=== PATIENT | male | born 1990 | race Two or more races ===

== ENCOUNTER 2019-10-08 17:50 | Emergency (ER) | payer OTHER ==
[~2019-10-08] VITALS: Ht 167.6 cm; Wt 45.4 kg
[~2019-10-08 17:50] MED LIST: METFORMIN HCL500 MG PO
[2019-10-08] MEDS ORDERED: LANTUS SOL100 UNIT/1 (18:42)
== END 2019-10-08 23:08 | disposition home or self-care (01) ==
LOC: ER 17:50
DX: R19.7 Diarrhea, unspecified (principal); E11.65 Type 2 diabetes mellitus with hyperglycemia